=== PATIENT | female | born 1985 | race Caucasian/White ===

== ENCOUNTER 2018-10-23 23:04 | Emergency (ER) | payer BC ==
[~2018-10-23] VITALS: Ht 162.6 cm; Wt 136.1 kg
[~2018-10-23 23:04] MED LIST: AZITHROMYCIN 2250 MG; BACTRIM DS TAB1 EACH PO; MIRALAX17 GM PO; PERCOCET 7.5-31 EACH PO; PHENERGAN 25 MG25 M1; PROTONIX40 M1; REGLAN 10 MG TA10 MG PO; TESSALON PERLE100 MG; ZOFRAN ODT4 MG PO
[2018-10-23] MEDS ORDERED: ZYRTEC-D TABLE1 EAC1 (23:27)
[2018-10-23 23:55] LABS: CALCIUM 9.1 mg/dL (8.5-10.1); CREATININE 0.9 mg/dL (0.6-1.3); POTASSIUM 3.4 mmol/L (3.5-5.1)
[2018-10-24] MEDS ORDERED: FLEXERIL PO (00:11)
[2018-10-24] MEDS ORDERED: ULTRAM 50MG TAB50 MG PO (00:22)
[2018-10-24 00:28] VITALS: BP 141/94
== END 2018-10-24 00:28 | disposition home or self-care (01) ==
LOC: M.ERS 23:04
PROVIDERS: Emergency Medicine Emergency Medical Services
DX: S76.011A Strain of muscle, fascia and tendon of right hip, initial encounter (principal); Z88.1 Allergy status to other antibiotic agents; Z88.5 Allergy status to narcotic agent; Z88.6 Allergy status to analgesic agent; Z88.0 Allergy status to penicillin; Z88.2 Allergy status to sulfonamides; Z90.49 Acquired absence of other specified parts of digestive tract; X50.1XXA Overexertion from prolonged static or awkward postures, initial encounter; Y92.89 Other specified places as the place of occurrence of the external cause; Y93.89 Activity, other specified; Y99.8 Other external cause status

== ENCOUNTER 2019-05-08 18:16 | Inpatient (IN) | payer BC ==
[~2019-05-08] VITALS: Ht 162.6 cm; Wt 158.8 kg
[~2019-05-08 18:16] MED LIST changes: +FLEXERIL PO; -PROTONIX40 M1; +PROTONIX40 M1 PO; +ULTRAM 50MG TAB50 MG PO; +ZYRTEC-D TABLE1 EAC1 PO
[2019-05-08 18:19] VITALS: BP 149/97
[2019-05-08] MEDS ORDERED: PHENERGAN 25 MG25 M1 PO (18:24)
[2019-05-08] MEDS ORDERED: NORCO 10-325 T1 EACH PO (18:25)
[2019-05-08] MEDS ORDERED: NEURONTIN600 MG PO (18:26)
[2019-05-08 19:46] LABS: ABSOLUTE BASOPHILS 0.1 thou/uL (0.0-0.2); ABSOLUTE EOSINOPHILS 0.1 thou/uL (0.0-0.7); ABSOLUTE LYMPHOCYTES 2.6 thou/uL (0.8-5.3); ABSOLUTE MONOCYTES 0.6 thou/uL (0.0-1.2); ABSOLUTE NEUTROPHILS 9.7 thou/uL (1.6-8.1); BASOPHILS 0.5 %; EOSINOPHILS 0.8 %; HEMATOCRIT 41.7 % (37.0-47.0); HEMOGLOBIN 13.8 gm/dL (12.0-15.0); MCH 27.9 pg (26.0-34.0); MCHC 33.1 g/dL (28.0-37.0); MCV 84.5 fL (80.0-100.0); MONOCYTES 4.7 %; MPV 7.7 fl. (7.2-11.1); NUCLEATED RBCS 0 /100WBC; PLATELET COUNT* 424 thou/uL (150-400); RBC 4.93 mil/uL (4.20-5.00); RDW-CV 16.3 % (10.5-14.5); WBC 13.1 thou/uL (4.0-11.0)
[2019-05-08 19:54] LABS: CALCIUM 9.1 mg/dL (8.5-10.1); CREATININE 0.9 mg/dL (0.6-1.3)
[2019-05-08 19:59] LABS: ALBUMIN 3.3 g/dL (3.4-5.0); TOTAL BILIRUBIN 0.4 mg/dL (<0.1-1.0)
[2019-05-08 23:10] LABS: URINE BILIRUBIN NEGATIVE (Negative); URINE BLOOD TRACE (Negative); URINE CLARITY CLEAR; URINE COLOR YELLOW; URINE GLUCOSE-RANDOM NEGATIVE (Negative); URINE KETONES NEGATIVE (Negative); URINE LEUKOCYTES-REFLEX NEGATIVE (Negative); URINE NITRITE-REFLEX NEGATIVE (Negative); URINE PROTEIN NEGATIVE (Negative); URINE UROBILINOGEN 0.2 E.U./dl (0.2-1.0)
[2019-05-08 23:31] LABS: AMP/METHAMP Negative (Negative); BARBITURATES Negative (Negative); BENZODIAZEPINES Negative (Negative); COCAINE Negative (Negative); METHADONE Negative (Negative); OPIATES POSITIVE (Negative); PCP Negative (Negative); THC Negative (Negative)
[2019-05-09] VITALS (7 sets, daily range): BP systolic 138–173; BP diastolic 70–108
[2019-05-09 08:48] LABS: ALBUMIN 3.4 g/dL (3.4-5.0); CREATININE 0.9 mg/dL (0.6-1.3); TOTAL BILIRUBIN 0.5 mg/dL (<0.1-1.0); TOTAL PROTEIN 8.1 g/dL (6.4-8.2)
[2019-05-09 08:51] LABS: HEMATOCRIT 43.6 % (37.0-47.0); HEMOGLOBIN 14.7 gm/dL (12.0-15.0); MCH 28.4 pg (26.0-34.0); MCHC 33.8 g/dL (28.0-37.0); MPV 7.7 fl. (7.2-11.1); NUCLEATED RBCS 0 /100WBC; PLATELET COUNT* 446 thou/uL (150-400); RBC 5.18 mil/uL (4.20-5.00); RDW-CV 16.2 % (10.5-14.5); WBC 10.3 thou/uL (4.0-11.0)
[2019-05-09 09:45] LABS: ABSOLUTE LYMPHOCYTES 0.5 thou/uL (0.8-5.3); ABSOLUTE MONOCYTES 0.1 thou/uL (0.0-1.2); ABSOLUTE NEUTROPHILS 9.7 thou/uL (1.6-8.1)
[2019-05-09 09:46] LABS: ANISOCYTOSIS 1+; GIANT PLATELETS RARE; PLATELET ESTIMATE INCREASED; POIKILOCYTOSIS 1+
--- NOTE | 2019-05-09 19:18 | NUR ---
PATIENT AWAKE IN BED WITH FAMILY AT BEDISDE. PATIENT AMBULATING WITH STAND BY ASSISTANCE TO BATHROOM THROUGHOUT SHIFT. ALL SAFETY MEASURES MAINTAINED. PATIENT DENIES FURTHER NEEDS AT THIS TIME.
--- NOTE | 2019-05-10 03:47 | NUR ---
ASSUMED PT CARE AT APPROX 1930. PT IS AWAKE AND ORIENTED X4. VSS ON ROOM AIR. PT C/O HEAD BACK AND LEG PAIN RELIEVED BY PAIN MEDS GIVEN PER MAR. PT IS ABLE TO SLEEP OFF/ON. CALL LIGHT WITHIN REACH. HOURLY ROUNDING DONE FOR PT SAFETY.
[2019-05-10 04:37] LABS: HEMATOCRIT 38.4 % (37.0-47.0); MCH 27.7 pg (26.0-34.0); MCHC 32.1 g/dL (28.0-37.0); MCV 86.2 fL (80.0-100.0); MPV 7.9 fl. (7.2-11.1); RBC 4.46 mil/uL (4.20-5.00); RDW-CV 16.6 % (10.5-14.5); WBC 14.9 thou/uL (4.0-11.0)
[2019-05-10 04:42] LABS: CALCIUM 8.5 mg/dL (8.5-10.1); CREATININE 0.7 mg/dL (0.6-1.3); MAGNESIUM 2.1 mg/dL (1.8-2.4); POTASSIUM 3.8 mmol/L (3.5-5.1)
[2019-05-10 04:52] LABS: HEMOGLOBIN 12.3 gm/dL (12.0-15.0)
[2019-05-10 09:20] VITALS: BP 146/85
[2019-05-10] MEDS ORDERED: TRANSDERM-SCOP1 EACH TRANSDERM (10:13)
--- NOTE | 2019-05-10 13:39 | NUR ---
Dr. Benton notified of patient's complaint of pounding headache that is worse with ambulation. Patient reports sensitivity to light and sound. New orders received and given per SEP.
[2019-05-10 16:31] VITALS: BP 137/56
--- NOTE | 2019-05-10 21:20 | NUR ---
PATIENT CALLED FOR NURSE TO THE ROOM STATING SHE IS BREAKING OUT INTO A RASH ON HER ARMS AND BACK. PT ON SECOND DOSE OF VANCOMYCIN IV. VANC STOPPED AND IV FLUIDS CONTINUED. DR PERAZA NOTIFIED AND GAVE ORDER TO GIVE BENEDRYL AND DC VANC. PT REASSURED THIS WAS MORE THAN LIKELY A REACTION TO THE VANCOMYCIN CALLED 'BELIA'S SYNDROME' AND WOULD TAKE APPROX 24HRS TO RESOLVE. BENEDRYL GIVEN FOR REACTION/ITCHING AND FENTANYL 50MCG IV GIVEN FOR PAIN IN HEAD, LEG AND BACK. MOTHER AT BEDSIDE. WILL CONTINUE TO MONITOR.
[2019-05-11 04:40] VITALS: BP 138/77
--- NOTE | 2019-05-11 05:53 | NUR ---
PATIENT AWAKE ALL NIGHT WITH MOTHER AT BEDSIDE. PT C/O REDNESS AND ITCHING ON ARMS. PT SAYS LEGS ARE RED AND ITCHING BUT REDNESS ONLY NOTED ON ARMS AND FACE, CHEST AND BACK. BENEDRYL GIVEN FOR ITCHING. PT GIVEN FENTANYL AND NORCO FOR PAIN. WARM PACKS AND COLD PACKS OFFERED FOR ARMS AND LEGS. PT UP TO BATHROOM WITH STANDBY ASSIST. SALINE LOCK IN RT HAND PATENT. FREQUENTLY USED ITEMS AND CALL LIGHT WITHIN REACH. SIDERAILS UP X2. WILL CONTINUE TO MONITOR.
[2019-05-11 08:20] VITALS: BP 122/78
[2019-05-11 08:27] LABS: HEMOGLOBIN 12.7 gm/dL (12.0-15.0); MCH 28.3 pg (26.0-34.0); MCHC 33.5 g/dL (28.0-37.0); MCV 84.5 fL (80.0-100.0); MPV 7.3 fl. (7.2-11.1); RBC 4.5 mil/uL (4.20-5.00); RDW-CV 16.1 % (10.5-14.5); WBC 11.5 thou/uL (4.0-11.0)
[2019-05-11 08:34] LABS: CALCIUM 8.4 mg/dL (8.5-10.1); CREATININE 0.8 mg/dL (0.6-1.3); POTASSIUM 3.4 mmol/L (3.5-5.1)
--- NOTE | 2019-05-11 09:39 | NUR ---
INITIAL ASSESSMENT: Pt evaluated for d/c planning needs. Reviewed chart and spoke with nurse, pt and pt's mother. Pt is alert and oriented. Pt lives in house with spouse and 21 year old adopted daughter. Pt has walker at home, and has borrowed a w/c. Pt plans on returning home on d/c from hospital. Will remain available to assist as needed.
[2019-05-11 13:25] VITALS: BP 128/64
[2019-05-11 13:25] LABS: CSF CLARITY CLEAR; CSF COLOR COLORLESS; CSF RBC 56 /mm3; CSF WBC 2 /mm3 (0-10); VOLUME 6 ml
[2019-05-11 14:29] LABS: CSF GLUCOSE 53 mg/dl (40-70); CSF PROTEIN 28.6 mg/dl (15-45)
[2019-05-11 16:21] VITALS: BP 136/70
--- NOTE | 2019-05-11 17:44 | NUR ---
PATIENT NPO THIS AM FOR LUMBAR PUNCTURE. PATIENT HAD LP THIS AFTERNOON, BEDREST PER ORDERS X 2 HOURS AND VITALS CHARTED. DRESSING TO LOWER BACK PUNCTURE SITE INTACT. DR. LANDRUM WAS NOTIFIED THAT PATIENT TACHYCARDIAC, NO NEW ORDERS RECEIVED. PATIENT GIVEN PRN FENTANYL FOR LEG/ARM PAIN. PATIENT C/O SWELLING IN LEGS, NURSE DID NOT OBSERVE ANY SWELLING. SWELLING AND REDNESS WAS NOTED TO LEFT ARM. ELEVATION AND ICE PACKS PROVIDED. PATIENT UP TO BATHROOM WITH SBA. IV ABX INFUSED. INFUSION NURSE PLACED NEW IV TO RIGHT FA. POTASSIUM REPLACED PER PROTOCOL. FAMILY AT BEDSIDE, SUPPORTIVE.
[2019-05-11 21:53] VITALS: BP 133/83
[2019-05-12 04:51] LABS: HEMATOCRIT 39.2 % (37.0-47.0); HEMOGLOBIN 12.7 gm/dL (12.0-15.0); MCH 27.7 pg (26.0-34.0); MCHC 32.3 g/dL (28.0-37.0); MCV 85.7 fL (80.0-100.0); RBC 4.58 mil/uL (4.20-5.00); RDW-CV 16.6 % (10.5-14.5)
[2019-05-12 05:01] LABS: CALCIUM 9.1 mg/dL (8.5-10.1); CREATININE 0.7 mg/dL (0.6-1.3); POTASSIUM 4.2 mmol/L (3.5-5.1)
--- NOTE | 2019-05-12 06:38 | NUR ---
PT SLEPT OFF AND ON OVERNIGHT BETWEEN PAIN MEDICINE ADMINS. CO ARMS AND LEGS FEELING STIFF AND SWOLLEN. LARM AND R HAND APPEAR PINK AND SLIGHTLY EDEMATOUS. PT STATES KNEES MILADYS PAINFUL WITH AMBULATION. RFA SLIV. IV PAIN MED, BENADRYL GIVEN PRN WITH FAIR RESULT. ICE PACKS TO L ARM AND R KNEE FOR COMFORT. SCHEDULED PHENERGAN AND GABAPENTIN GIVEN. AM LAB DRAWN. ALSO CO L SIDED HEADACHE, BUT EXTREMITIES MORE PAINFUL SHE STATES THAN HEADACHE. UP WITH ASSIST TO BR TO VOID, CHAIR OVERNIGHT, AT BEDSIDE ATTENTIVE TO CARES. ABLE TO USE CALL LITE AND MAKE NEEDS KNOWN, CALL LITE IN EASY REACH.
[2019-05-12 08:20] VITALS: BP 152/74
--- NOTE | 2019-05-12 14:17 | NUR ---
Nutrition: Pt seen for high BMI. Admitted with ALLISON. She stated her ALLISON is better today. Wt: 350#. Regular diet. No nutritionally significant labs. Pt denied need for any nutrition info. Mild risk.
--- NOTE | 2019-05-12 16:45 | NUR ---
CARSON followed up with wc order and discussed with Dr Benton. Not enough medical justification upon this admission diagnosis to warrant a wc order. CARSON informed Kati with [employer] and will follow up with pt prior to pt dc.
[2019-05-12 17:01] VITALS: BP 137/86
--- NOTE | 2019-05-12 17:18 | NUR ---
PT A&OX4 VSS. PT RESTING IN BED WITH CALL LIGHT IN REACH. L ARM ELEVATED ON PILLOWS, ICE PACKS TO AREA.ICE TO BILAT KNEES FOR COMFORT. PT FAMILY AT BEDSIDE. ROOM DARKENED AND QUIET FOR COMFORT. PT MANAGING PAIN WITH PO PAIN MEDICATIONS TO PREPARE FOR DC HOME. PT REPORTS SIGNIFICANT RELIEF WITH PO PAIN MEDICATIONS. PT REQUESTED BENEDRYL TO ADDRESS C/O ITCHING. PT HAD CXR THIS AM, NO NEGATIVE FINDINGS NOTED. PT WAS SEEN BY PHYSICAL THERAPY. NEURO CONSULTED AND CONSIDERING BLOOD PATCH TOMORROW.
[2019-05-12 20:30] VITALS: BP 142/78
--- NOTE | 2019-05-13 06:02 | NUR ---
PT SEEMED MORE RELAXED AND COMFORTABLE AT START OF SHIFT, STATING PO PAIN MED EFFECTIVE FOR HEADACHE AND ARM AND LEG PAIN. REQUESTING BENADRYL WITH PAIN MEDS TO HELP WITH ITCHING SHE STATES. ICE PACKS TO ARM AND LEG PRN FOR COMFORT. MOTHER AT BEDSIDE ATTENTIVE TO CARES OVERNIGHT. 0400 PT REQUESTING PAIN MED AND BENADRYL, TEARFUL, STATING THAT HEADACHE IS BACK. MEDS GIVEN ORDERED, INQUIRED OF PT WILLINGNESS FOR BLOOD PATCH AND PT STATES SHE WOULD RATHER TAKE MEDS PRN. ABLE TO USE CALL LITE AND MAKE NEEDS KNOWN. CALL LITE IN EASY REACH.
[2019-05-13 07:30] VITALS: BP 134/70
[2019-05-13 16:00] VITALS: BP 141/68
--- NOTE | 2019-05-13 16:29 | NUR ---
SW provided pt family with list of area OP PCP options. Pt was sleeping soundly and pt family said that pt "did not have a very good day" in that pt wasn't feeling very well. SW to continue to follow.
--- NOTE | 2019-05-13 17:13 | NUR ---
PT A&OX4 VSS. PT RESTS IN BED IN QUIET/DARK ROOM FOR COMFORT. PT HAS DAMP CLOTH ON FACE AND ICE PACKS TO ARM FOR COMFORT. TUBAGRIP APPLIED TO BLE ORDERED. TOLERATED WELL. PT C/O PERSISTENT HEAD PAIN, COMPAZINE AND BENEDRYL ADMINISTERED ORDERED BY DR LANDRUM. PT STATES COMPAZINE MAKES HER "CRAZY" AFTER THE MEDICATION HAS BEEN ADMINISTERED. PT FATHER APPROACHED NURSES STATION TO REQUEST ANXIETY MEDS AND DR LANDURM WAS CONTACTED. WHEN THIS NURSE ARIVED IN PT ROOM W/ ATIVAN PT WAS SLEEPING SOUNDLY. ATIVAN HELD AT THAT TIME. FAMILY AT BEDSIDE. PT INSISTS ON REMAINING IN BED AND USING BEDPAN. ANESTHESIA TO EVAL PT THIS EVENING FOR POSSIBLE BLOOD PATCH PER NEURO RECOMMENDATION AND DR LANDRUM'S ORDERS.
--- NOTE | 2019-05-13 18:39 | NUR ---
ANESTHESIA VISITED PT TO EVAL NEED FOR BLOOD PATCH. PT STILL C/O HEAD PAIN, EVEN WHEN LYING FLAT. ANESTHESIA HAS DECIDED PROCEDURE IS NOT APPROPRIATE AT THIS TIME. PT AWARE. WILL CONTINUE TO MONITOR.
[2019-05-13 21:50] VITALS: BP 142/85
--- NOTE | 2019-05-14 07:01 | NUR ---
PT MAINTAINING BEDREST OVERNIGHT PER HER REQUEST TO REST BACK AND TRY TO RELIEVE HEADACHE. PT REQUESTING IV PAIN MED Q4 HOURS OVERNIGHT FOR HEACHACHE TO TRY TO GET IT UNDER CONTROL SO SHE CAN GO HOME TODAY. PT HEADACHE APPEARS TO BE FEELING BETTER THIS MORNING, AGREEABLE TO PO PAIN MED HYDROCODONE GIVEN THIS MORNING. USING BEDPAN TO VOID. NO LABS DRAWN THIS MORNING. LFA SL. DTR AT BEDSIDE OVERNIGHT ATTENTIVE TO NEEDS. ABLE TO USE CALL LITE AND MAKE NEEDS KNONW. CALL LITE IN EASY REACH.
[2019-05-14 08:34] VITALS: BP 146/70
[2019-05-14 12:06] VITALS: BP 142/85
[2019-05-14] MEDS ORDERED: AFRIN30 ML NASAL (12:26)
[2019-05-14 14:53] VITALS: BP 142/85
[2019-05-14 14:54] VITALS: BP 142/85
--- NOTE | 2019-05-14 15:08 | NUR ---
1240 PATIENT ALERT AND ORIENTED X4. DISCHARGE INSTRUCTIONS REVIEWED WITH PATIENT. PATIENT DENIES FURTHER QUESTIONS AND NEEDS AT THIS TIME. ALL SAFETY MEASURES MAINTAINED. DISCHARGE PAPERWORK, DIET AND MEDICATION INFORMATION SHEETS, AND PRESCRIPTION SENT WITH PATIENT. PRESCRIPTION FOR PHENERGAN VERIFIED WITH DR. PERAZA AND CALLED INTO PATIENT'S PREFERRED PHARMACY.
--- NOTE | 2019-05-15 12:46 | CON ---
[facility] [address] [place] [address] CONSULTATION Name: FELA AVILA Room: [address] [place] .R.#: [id number] Admission: 05/09/19 Attend Phys: Talita Belcher Discharge: 05/14/19 Date of : 81 Report #: [id number] THIS REPORT FOR: //name// CC: YANIQUE BRADY Physician staff Ric Boateng DATE OF SERVICE: 05/12/2019 HISTORY OF PRESENT ILLNESS: This is a 33-year-old female patient who was seen by me for headache. She indicates that she usually does not get any headache, but she had epidural about 4 days before coming to Emergency Room and then started having headache. The headache was not immediately after the epidural and there was a lag. She underwent a spinal tap in the Emergency Room and that indicated a normal protein and 2 WBC. She continued to have headache. Headache was worse when she stood up. When she is lying down, the headache is better. Today, she was able to sit on the chair for about 2 hours without getting any headache. REVIEW OF SYSTEMS: Indicates that she is usually healthy. She is here with her mother today. She did have some nonspecific symptoms, but those symptoms have improved. A 14-point review of system was otherwise noncontributory. She has been seen in the Emergency Room with some nonspecific pain on multiple occasions. PAST MEDICAL HISTORY: Positive for headache, which has improved. FAMILY HISTORY: Noncontributory. SOCIAL HISTORY: She was here with the mother who is pretty supportive of her. PHYSICAL EXAMINATION: The patient's examination indicates she is alert, responsive, able to follow simple and complex command. Her speech, concentration, fund of knowledge and memory was at her baseline. Cranial nerve examination 2-12 looks unremarkable. I could not look at the patient's fundus. Neuromuscular examination looks symmetrical. No meningeal sign. She is morbidly obese. Cardiac and respiratory examination is unremarkable. Blood pressure is 152/74, respirations 18, pulse is 98, and temperature is 97.6. LABORATORY DATA: Indicate a slightly increased white count. Platelet is also trace high. She did have a CT, which was unremarkable. IMPRESSION: 1. The patient's present headache was most likely post-spinal headache. She had no headache when I saw her. If she is getting better, we can just watch her for the time being. I did not want her to get up [place] [address] CONSULTATION Name: FELA AVILA Room: [address]#: [id number] Admission: 05/09/19 Attend Phys: Talita Belcher Discharge: 05/14/19 Date of : 81 Report #: [id number] headache. However, if her symptoms continue, she may need an MRI and MRV and systemic workup including collagen vascular workup. She also may need a blood patch. We will see this patient tomorrow and follow up after that. All of it was discussed with the patient in detail and she understands and she wants to follow this plan. <ELECTRONICALLY SIGNED> By: Rizwan Zamora MD 05/15/19 [id number] Zamora MD /nt
== END 2019-05-14 14:30 | disposition home or self-care (01) | DRG 103 ==
LOC: M.ERS 18:16 → M.3W 05-09 00:12 → M.TBA-ER 05-09 00:12 → M.3W 05-09 02:43
PROVIDERS: Internal Medicine; Personal Emergency Response Attendant; ADMIT Internal Medicine
PROC: B01B1ZZ Fluoroscopy of Spinal Cord using Low Osmolar Contrast (ICD-10-PCS; principal; 2019-05-11)
PROC: 009U3ZX Drainage of Spinal Canal, Percutaneous Approach, Diagnostic (ICD-10-PCS; principal; 2019-05-11)
DX: G97.1 Other reaction to spinal and lumbar puncture (principal); Z68.44 Body mass index [BMI] 60.0-69.9, adult; L27.0 Generalized skin eruption due to drugs and medicaments taken internally; T36.8X5A Adverse effect of other systemic antibiotics, initial encounter; E66.01 Morbid (severe) obesity due to excess calories; G89.4 Chronic pain syndrome; Y84.4 Aspiration of fluid as the cause of abnormal reaction of the patient, or of later complication, without mention of misadventure at the time of the procedure; Z90.49 Acquired absence of other specified parts of digestive tract; Z87.19 Personal history of other diseases of the digestive system; Z79.899 Other long term (current) drug therapy; Z88.1 Allergy status to other antibiotic agents; Z88.6 Allergy status to analgesic agent; Z88.2 Allergy status to sulfonamides; Z88.8 Allergy status to other drugs, medicaments and biological substances; Y92.89 Other specified places as the place of occurrence of the external cause